=== PATIENT | female | born 2000 | race Caucasian/White ===

== ENCOUNTER 2021-02-16 21:17 | Emergency (ER) | payer OTHER ==
[~2021-02-16] VITALS: Ht 152.4 cm; Wt 44.2 kg
[2021-02-16 21:28] VITALS: BP 146/89
--- NOTE | 2021-02-16 21:49 | PHYS DOC ---
Past History Past Surgical History: Other Additional Past Surgical Histo: eye Alcohol Use: None Adult General Chief Complaint Chief Complaint: ANXIETY/PANIC ATTACK HPI HPI Patient is a 20-year-old female who presents with a chief complaint of anxiety/panic attacks. States he has a history of this. States that this was started just a little ago for coming to the emergency department while she was sitting at home. Denies recent traumas, travels, illnesses, fevers, chest pain, shortness of breath, abdominal pain, nausea, vomiting, dysuria, hematuria or blood in the stool. Denies any alcohol or drug use. Denies any vaginal bleeding, discharge or pain. Review of Systems Review of Systems Review of systems otherwise unremarkable except noted in HPI Allergies Allergies Allergies Coded Allergies Type Severity Reaction Last Updated Verified No Known Drug Allergies 02/16/21 No Physical Exam Physical Exam Constitutional: Well developed, well nourished, no acute distress, non-toxic appearance. [] HENT: Normocephalic, atraumatic, bilateral external ears normal, oropharynx moist, no oral exudates, nose normal. [] Eyes: conjunctiva normal, no discharge. [] Neck: Normal range of motion, no tenderness, supple, no stridor. [] Cardiovascular: Sinus tachycardia Lungs & Thorax: Bilateral breath sounds clear to auscultation [] Abdomen: Bowel sounds normal, soft, no tenderness, no masses, no pulsatile masses. [] Skin: Warm, dry, no erythema, no rash. [] Back: No tenderness, no CVA tenderness. [] Extremities: No tenderness, no cyanosis, no clubbing, ROM intact, no edema. [] Neurologic: Alert and oriented X 3, normal motor function, normal sensory function, no focal deficits noted. [] Psychologic: Affect normal, judgement normal, mood normal. [] Current Patient Data Vital Signs Vital Signs Date Time Temp Pulse Resp B/P (MAP) Pulse Ox O2 Delivery O2 Flow Rate FiO2 02/16/21 21:28 98.3 107 16 146/89 (108) 100 Room Air EKG EKG [] Radiology/Procedures Radiology/Procedures [] Heart Score C/O Chest Pain: No Risk Factors: Risk Factors: DM, Current or recent (<one month) smoker, HTN, HLP, family history of CAD, obesity. Risk Scores: Risk Factors: DM, Current or recent (<one month) smoker, HTN, HLP, family history of CAD, obesity. Course & Med Decision Making Course & Med Decision Making Patient is a 20-year-old female who presents with panic attack Vital signs initially notable for tachycardia. Physical exam noted above. Given patient diazepam. Discussed all findings with patient. Advised on symptom management at home. Advised to call primary care physician in the morning to update on ED visit. Gave return precautions to the ED. Patient grateful, verbalized understanding agree with plan of discharge. [] Dragon Disclaimer Dragon Disclaimer This electronic medical record was generated, in whole or in part, using a voice recognition dictation system. Departure Departure: Impression: Primary Impression: Panic attack Disposition: HOME / SELF CARE / HOMELESS Condition: GOOD Referrals: PCP,BHARATHI (PCP) HEATHER MCKAY MD Patient Instructions: Anxiety and Panic Attacks Additional Instructions: Thank you for coming into the emergency department tonight and allowing us to take care of you. Please read the attached information carefully to go over things we discussed. Please call your primary care physician first thing in the morning or call the one at the number provided to establish care, and set up a post ER follow-up visit as soon as possible to discuss management of anxiety and panic attacks at home. You are also given contact information for the local guidance Center to call in the morning as well. Please come back to the ED with new or concerning symptoms as discussed. AARON ECHOLS MD Feb 16, 2021 21:49
[2021-02-16] MEDS ORDERED: diazePAM 5 MG TABLET. PO ONE (22:30)
--- NOTE | 2021-02-16 23:02 | EKG ---
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
== END 2021-02-16 23:10 | disposition home or self-care (01) ==
LOC: ER 21:17
DX: F41.0 Panic disorder [episodic paroxysmal anxiety] (principal)
CPT/HCPCS: 93005; 99283-25